=== PATIENT | female | born 1985 | race Two or more races ===

== ENCOUNTER 2020-05-11 12:42 | Emergency (ER) | payer OTHER, MEDICAID ==
[~2020-05-11] VITALS: Ht 157.5 cm; Wt 69.4 kg
[2020-05-11] MEDS ORDERED: IBUPROFEN 600 MG TABLET PO ONE (14:00)
[2020-05-11] MEDS ORDERED: IBUPROFEN 600 MG TABLET ONE (14:01)
--- NOTE | 2020-05-11 14:11 | NUR ---
PATIENT HAS KNEE BRACE, REFUSED OLAYINKA WRAP
[2020-05-11 14:12] VITALS: BP 149/90
--- NOTE | 2020-05-11 14:12 | NUR ---
Patient discharged to home in stable condition. Written and verbal after care instructions given. Patient verbalizes understanding of instruction.
== END 2020-05-11 14:12 | disposition home or self-care (01) ==
LOC: ER 12:48
DX: M25.561 Pain in right knee (principal); M06.9 Rheumatoid arthritis, unspecified; Z98.890 Other specified postprocedural states; Z88.5 Allergy status to narcotic agent

== ENCOUNTER 2021-08-21 21:03 | Emergency (ER) | payer OTHER, MEDICAID ==
[~2021-08-21] VITALS: Ht 157.5 cm; Wt 77.1 kg
[2021-08-21 21:19] VITALS: BP 138/71
--- NOTE | 2021-08-21 21:28 | NUR ---
PT BIBSELF C/O RIGHT KNEE PAIN X 2 WEEKS. PT AMBULATORY WITH STEADY GAIT.
--- NOTE | 2021-08-21 21:28 | NUR ---
WOUND CARE DONE TO PT'S RIGHT KNEE
== END 2021-08-21 21:38 | disposition home or self-care (01) ==
LOC: ER 21:24
DX: S83.8X1A Sprain of other specified parts of right knee, initial encounter (principal); M06.9 Rheumatoid arthritis, unspecified; Z98.890 Other specified postprocedural states; Z88.5 Allergy status to narcotic agent; X58.XXXA Exposure to other specified factors, initial encounter; Y93.89 Activity, other specified; Y92.89 Other specified places as the place of occurrence of the external cause; Y99.8 Other external cause status